=== PATIENT | male | born 1990 | race African-American/Black ===

== ENCOUNTER 2017-11-05 10:18 | Emergency (ER) | payer MEDICAID ==
[~2017-11-05] VITALS: Ht 175.3 cm; Wt 59.0 kg
[2017-11-05] MEDS ORDERED: IBUPROFEN 600MG TABLET PO ONE (14:45)
[2017-11-05 16:45] VITALS: BP 120/62
== END 2017-11-05 16:45 | disposition home or self-care (01) ==
LOC: ER 11:19
DX: J02.9 Acute pharyngitis, unspecified (principal); F12.10 Cannabis abuse, uncomplicated
CPT/HCPCS: 87070; 87430; 99284

== ENCOUNTER 2020-02-19 06:45 | Emergency (ER) | payer MEDICAID ==
[~2020-02-19] VITALS: Ht 345.4 cm; Wt 64.0 kg
[2020-02-19 08:40] VITALS: BP 142/72
== END 2020-02-19 08:47 | disposition home or self-care (01) ==
LOC: ER 06:50
DX: F41.9 Anxiety disorder, unspecified (principal); F12.10 Cannabis abuse, uncomplicated
CPT/HCPCS: 99283

== ENCOUNTER 2020-02-27 21:01 | Emergency (ER) | payer MEDICAID ==
[~2020-02-27] VITALS: Ht 175.3 cm; Wt 66.0 kg
[2020-02-27] MEDS ORDERED: ACETAMINOPHEN 325MG TABLET PO ONE (22:30)
[2020-02-27] MEDS ORDERED: IBUPROFEN 600MG TABLET PO ONE (23:45)
[2020-02-27 23:50] VITALS: BP 145/92
== END 2020-02-27 23:50 | disposition home or self-care (01) ==
LOC: ER 21:01
DX: S69.91XA Unspecified injury of right wrist, hand and finger(s), initial encounter (principal); F32.9 Major depressive disorder, single episode, unspecified; F41.9 Anxiety disorder, unspecified; F90.9 Attention-deficit hyperactivity disorder, unspecified type; F12.10 Cannabis abuse, uncomplicated; W22.09XA Striking against other stationary object, initial encounter; Y93.89 Activity, other specified; Y92.018 Other place in single-family (private) house as the place of occurrence of the external cause
CPT/HCPCS: 73130; 99283

== ENCOUNTER 2021-05-02 19:16 | Emergency (ER) | payer MEDICAID ==
[~2021-05-02] VITALS: Ht 175.3 cm; Wt 69.0 kg
[2021-05-03] MEDS ORDERED: KETOROLAC 30MG/ML VIAL IV STA (00:17)
[2021-05-03] MEDS ORDERED: SODIUM CHLORIDE 0.9% 1,000 ML IV ONE (00:30)
[2021-05-03 00:50] LABS: BASOPHILS % 0.5 % (0.0-2.0); HEMATOCRIT. 44.7 % (42.0-52.0); HEMOGLOBIN. 15.5 g/dL (14.0-18.0); LYMPHOCYTES % 27.4 % (20.0-50.0); MEAN CORPUSCULAR HEMOGLOBIN 30.9 pg (28.0-32.0); MEAN PLATELET VOLUME 8.3 fl (7.4-10.4); MONOCYTES % 9.9 % (2.0-8.0); NEUTROPHILS % 60.2 % (40.0-76.0); PLATELET 208 x1000/uL (130-400); RED BLOOD CELL COUNT 5.03 mill/uL (4.7-6.1); RED CELL DISTRIBUTION WIDTH 13.5 % (11.6-14.6)
[2021-05-03 00:57] LABS: CHLORIDE 107 mEq/L (98-107)
[2021-05-03] MEDS ORDERED: IBUP-2029 MT (03:21)
[2021-05-03] MEDS ORDERED: AMOX-424 MT (03:21)
[2021-05-03 04:00] VITALS: BP 121/67
[2021-05-03] MEDS ORDERED: CLIN300C12 MT (04:09)
[2021-05-03] MEDS ORDERED: CLINDAMYCIN HCL 150MG CAPSULE PO SCH (06:00)
[2021-05-03] MEDS ORDERED: IOHEXOL-300 100 ML BOTTLE ONE (06:37)
== END 2021-05-03 04:25 | disposition home or self-care (01) ==
LOC: ER 19:16
DX: K05.6 Periodontal disease, unspecified (principal); R22.0 Localized swelling, mass and lump, head; J45.909 Unspecified asthma, uncomplicated; F12.10 Cannabis abuse, uncomplicated; Z13.9 Encounter for screening, unspecified
CPT/HCPCS: 36415; 70487; 80053; 85025; 96361; 96374; 99285; J1885; J7030; Q9967

== ENCOUNTER 2021-08-12 21:04 | Emergency (ER) | payer MEDICAID ==
[~2021-08-12] VITALS: Ht 175.3 cm; Wt 68.0 kg
[~2021-08-12 21:04] MED LIST: CLIN300C12 MT; IBUP-2029 MT
[2021-08-12 21:15] VITALS: BP 149/94
== END 2021-08-12 22:56 | disposition left against medical advice (07) ==
LOC: ER 21:04
DX: Z53.21 Procedure and treatment not carried out due to patient leaving prior to being seen by health care provider (principal)

== ENCOUNTER 2024-05-26 00:40 | Emergency (ER) | payer MEDICAID ==
[~2024-05-26] VITALS: Ht 172.7 cm; Wt 80.0 kg
[~2024-05-26 00:40] MED LIST changes: +CLIN-194 MT; -CLIN300C12 MT
[2024-05-26 00:50] VITALS: TEMP 98.1; O2SAT 100
[2024-05-26 03:11] LABS: *AMPHETAMINES SCREEN URINE NEGATIVE (NEGATIVE); *BARBITURATES SCREEN URINE NEGATIVE (NEGATIVE); *BENZODIAZEPINES SCREEN URINE NEGATIVE (NEGATIVE); *COCAINE SCREEN URINE NEGATIVE (NEGATIVE)
[2024-05-26 03:12] LABS: CANNABINOID URINE SCREEN PRESUMPTIVE POSITIVE (NEGATIVE); ECSTASY MDMA SCREEN URINE NEGATIVE (NEGATIVE); METHADONE URINE SCREEN NEGATIVE (NEGATIVE); OPIATES URINE SCREEN NEGATIVE (NEGATIVE); PHENCYCLIDINE URINE SCREEN NEGATIVE (NEGATIVE)
[2024-05-26 06:47] VITALS: BP 116/65; PULSE 69; RESP 16; O2SAT 99
[2024-05-26] MEDS ORDERED: ONDA-239 PO (08:50)
== END 2024-05-26 06:48 | disposition home or self-care (01) ==
LOC: ER 00:40
DX: F10.129 Alcohol abuse with intoxication, unspecified (principal); J45.909 Unspecified asthma, uncomplicated; F12.10 Cannabis abuse, uncomplicated; Y90.8 Blood alcohol level of 240 mg/100 ml or more
CPT/HCPCS: 36415; 73120; 80305; 80320; 99284; G0480

== ENCOUNTER 2024-05-26 08:17 | Emergency (ER) | payer MEDICAID ==
[~2024-05-26] VITALS: Ht 175.3 cm; Wt 66.7 kg
[2024-05-26 08:25] VITALS: BP 131/61; PULSE 84; RESP 16; TEMP 98.1; O2SAT 99
[2024-05-26] MEDS ORDERED: ONDA-239 PO (08:50)
[2024-05-26] MEDS: ONDANSETRON 4MG ODT PO ONE (09:20)
== END 2024-05-26 09:20 | disposition home or self-care (01) ==
LOC: ER 08:25
DX: R11.0 Nausea (principal); F10.10 Alcohol abuse, uncomplicated; F41.9 Anxiety disorder, unspecified; F31.9 Bipolar disorder, unspecified; F12.10 Cannabis abuse, uncomplicated
CPT/HCPCS: 99283; Q0162

== ENCOUNTER 2024-10-31 13:49 | Emergency (ER) | payer MEDICAID ==
[~2024-10-31] VITALS: Ht 175.3 cm; Wt 68.0 kg
[~2024-10-31 13:49] MED LIST changes: +ONDA-239 PO
[2024-10-31 13:57] VITALS: O2SAT 100
[2024-10-31 14:45] LABS: CLARITY URINE CLOUDY (CLEAR); COLOR URINE YELLOW (YELLOW); GLUCOSE URINE NEGATIVE (NEGATIVE); KETONES URINE NEGATIVE (NEGATIVE); LEUKOCYTE ESTERASE URINE NEGATIVE (NEGATIVE); NITRITE URINE NEGATIVE (NEGATIVE); OCCULT BLOOD URINE NEGATIVE (NEGATIVE); PROTEIN URINE NEGATIVE (NEGATIVE); SPECIFIC GRAVITY URINE 1.006 (1.005-1.030); UROBILINOGEN URINE 0.2 E.U./dL (0.2-1.0)
[2024-10-31] MEDS: LORAZEPAM 2MG/ML INJ IM ONE (14:52)
[2024-10-31] MEDS: HALOPERIDOL LACTATE 5MG/ML VIAL IM ONE (14:53)
[2024-10-31] MEDS: DIPHENHYDRAMINE 50MG/ML VIAL IM ONE (14:53)
[2024-10-31 14:59] LABS: *AMPHETAMINES SCREEN URINE NEGATIVE (NEGATIVE); *BARBITURATES SCREEN URINE NEGATIVE (NEGATIVE); *BENZODIAZEPINES SCREEN URINE NEGATIVE (NEGATIVE); *COCAINE SCREEN URINE NEGATIVE (NEGATIVE)
[2024-10-31 15:00] LABS: CANNABINOID URINE SCREEN PRESUMPTIVE POSITIVE (NEGATIVE); ECSTASY MDMA SCREEN URINE NEGATIVE (NEGATIVE); METHADONE URINE SCREEN NEGATIVE (NEGATIVE); OPIATES URINE SCREEN NEGATIVE (NEGATIVE); PHENCYCLIDINE URINE SCREEN NEGATIVE (NEGATIVE)
[2024-10-31 15:08] LABS: BACTERIA URINE RARE; RBC URINE NONE SEEN /hpf (0-2); SQUAMOUS EPITHELIAL CELL URINE NONE SEEN /lpf (RARE/1+); WBC URINE 0-2 /hpf (0-2); YEAST URINE NONE SEEN
[2024-10-31 15:58] LABS: BASOPHILS % 1.2 % (0.0-2.0); EOSINOPHILS % 1.2 % (0.0-5.0); HEMATOCRIT. 46.9 % (42.0-52.0); HEMOGLOBIN. 15.7 g/dL (14.0-18.0); LYMPHOCYTES % 43.6 % (20.0-50.0); MEAN CORPUSCULAR HGB CONC 33.5 g/dL (31.0-37.0); MEAN CORPUSCULAR VOLUME 92.5 fL (80.0-94.0); MEAN PLATELET VOLUME 7.7 fl (7.4-10.4); MONOCYTES % 8.1 % (2.0-8.0); NEUTROPHILS % 45.9 % (40.0-76.0); PLATELET 241 x1000/uL (130-400); RED BLOOD CELL COUNT 5.07 mill/uL (4.7-6.1); RED CELL DISTRIBUTION WIDTH 14.6 % (11.6-14.6); WHITE BLOOD COUNT 3.6 x1000/uL (4.5-11.0)
[2024-10-31 16:02] LABS: CHLORIDE 111 mEq/L (98-107); POTASSIUM 3.6 mEq/L (3.5-5.1); SODIUM 148 mEq/L (136-145)
[2024-10-31 16:03] LABS: CARBON DIOXIDE 26 mEq/L (21-32)
[2024-10-31 16:04] LABS: CALCIUM 9.6 mg/dL (8.7-10.4)
[2024-10-31 16:08] LABS: CREATININE 0.9 mg/dL (0.6-1.3)
[2024-10-31 16:09] LABS: ETHANOL BLOOD 229 mg/dL (<10); GLUCOSE 92 mg/dL (70-105); UREA NITROGEN BLOOD 7 mg/dL (9-23)
[2024-10-31 16:10] LABS: ACETAMINOPHEN < 2 ug/mL (10-30)
[2024-10-31 18:00] VITALS: BP 128/74; PULSE 76; RESP 18; TEMP 36.9; O2SAT 99
== END 2024-11-01 02:22 | disposition home or self-care (01) ==
LOC: ER 13:49
DX: F31.9 Bipolar disorder, unspecified (principal); F41.9 Anxiety disorder, unspecified; R45.851 Suicidal ideations; Z79.899 Other long term (current) drug therapy; Z91.018 Allergy to other foods
CPT/HCPCS: 80305; 80048; 81003; 80307; 80329; 80320; 85025; 36415; 96372; 99284; J1200; J1630; J2060; G0480

== ENCOUNTER 2025-04-01 21:51 | Emergency (ER) | payer MEDICAID ==
[~2025-04-01] VITALS: Ht 182.9 cm; Wt 80.0 kg
[2025-04-01] MEDS: LORAZEPAM 2MG/ML UD SYRINGE IM NR (22:40)
[2025-04-01] MEDS: HALOPERIDOL LACTATE 5MG/ML VIAL IM ONE (22:40)
[2025-04-01] MEDS: DIPHENHYDRAMINE 50MG/ML VIAL IM ONE (22:40)
[2025-04-01 23:01] LABS: BASOPHILS % 0.6 % (0.0-2.0); EOSINOPHILS % 6.3 % (0.0-5.0); HEMATOCRIT. 49.2 % (42.0-52.0); HEMOGLOBIN. 16.4 g/dL (14.0-18.0); LYMPHOCYTES % 52.5 % (20.0-50.0); MEAN PLATELET VOLUME 8.2 fl (7.4-10.4); MONOCYTES % 8.4 % (2.0-8.0); NEUTROPHILS % 32.2 % (40.0-76.0); PLATELET 259 x1000/uL (130-400); RED BLOOD CELL COUNT 5.25 mill/uL (4.7-6.1); RED CELL DISTRIBUTION WIDTH 13.8 % (11.6-14.6)
[2025-04-01 23:02] LABS: CLARITY URINE CLEAR (CLEAR); COLOR URINE YELLOW (YELLOW); GLUCOSE URINE NEGATIVE (NEGATIVE); KETONES URINE NEGATIVE (NEGATIVE); LEUKOCYTE ESTERASE URINE NEGATIVE (NEGATIVE); NITRITE URINE NEGATIVE (NEGATIVE); OCCULT BLOOD URINE TRACE (NEGATIVE); PH URINE 5.5 (4.5-8.0); PROTEIN URINE TRACE (NEGATIVE); SPECIFIC GRAVITY URINE 1.012 (1.005-1.030); UROBILINOGEN URINE 0.2 E.U./dL (0.2-1.0)
[2025-04-01 23:10] LABS: *AMPHETAMINES SCREEN URINE NEGATIVE (NEGATIVE); *BARBITURATES SCREEN URINE NEGATIVE (NEGATIVE); *BENZODIAZEPINES SCREEN URINE PRESUMPTIVE POSITIVE (NEGATIVE); *COCAINE SCREEN URINE NEGATIVE (NEGATIVE); CANNABINOID URINE SCREEN NEGATIVE (NEGATIVE); ECSTASY MDMA SCREEN URINE NEGATIVE (NEGATIVE); METHADONE URINE SCREEN NEGATIVE (NEGATIVE); OPIATES URINE SCREEN NEGATIVE (NEGATIVE); PHENCYCLIDINE URINE SCREEN NEGATIVE (NEGATIVE)
[2025-04-01 23:12] LABS: BACTERIA URINE NONE SEEN; RBC URINE NONE SEEN /hpf (0-2); SQUAMOUS EPITHELIAL CELL URINE NONE SEEN /lpf (RARE/1+); WBC URINE 0-2 /hpf (0-2)
[2025-04-01 23:15] LABS: UREA NITROGEN BLOOD 10 mg/dL (9-23)
[2025-04-01 23:16] LABS: CREATININE 1.4 mg/dL (0.6-1.3)
[2025-04-01 23:25] LABS: ETHANOL BLOOD 293 mg/dL (<10)
[2025-04-01 23:30] VITALS: O2SAT 94
[2025-04-02 00:05] VITALS: PULSE 77; TEMP 98.6
[2025-04-02] MEDS: ZIPRASIDONE MESYLATE 20MG/VIAL IM ONE (00:15)
[2025-04-02] MEDS: OLANZAPINE 5MG TABLET ODT PO SCH (09:30)
[2025-04-02] MEDS ORDERED: HYDROXYZINE 25MG TABLET PO PRN (10:00)
[2025-04-02] MEDS ORDERED: TRAZODONE HCL 50MG TABLET PO PRN (10:00)
[2025-04-02 15:39] LABS: ETHANOL BLOOD < 10 mg/dL (<10)
[2025-04-02 15:40] LABS: ASPARTATE AMINOTRANSFERASE 58 IU/L (<34); BILIRUBIN DIRECT 0.2 mg/dL (<=3.0); BILIRUBIN TOTAL 0.7 mg/dL (0.1-1.0); PROTEIN TOTAL 8.1 g/dL (6.0-8.3)
[2025-04-02 22:45] VITALS: BP 132/79; PULSE 61; RESP 20; TEMP 36.7; O2SAT 100
== END 2025-04-02 23:02 ==
LOC: ER 21:51
DX: R45.851 Suicidal ideations (principal); R51.9 Headache, unspecified; F31.9 Bipolar disorder, unspecified; I49.9 Cardiac arrhythmia, unspecified; G40.909 Epilepsy, unspecified, not intractable, without status epilepticus; Z20.822 Contact with and (suspected) exposure to COVID-19; Z91.018 Allergy to other foods; Z86.59 Personal history of other mental and behavioral disorders
CPT/HCPCS: 80305; 80048; 81003; 80307; 80329; 80320 ×2; 85025; 36415 ×2; 93005; 96372; 99285; 87426; 80076; 70450; J1200; J1630; J2060; Z7610; A4606; G0480